=== PATIENT | female | born 1955 | race Caucasian/White ===

== ENCOUNTER 2022-03-13 14:54 | Emergency (ER) | payer MEDICARE ==
[~2022-03-13] VITALS: Ht 160 cm; Wt 65.7 kg
[~2022-03-13 14:54] MED LIST: CIPROFLOXACN500 MG PO; DICYCLOMINE10 MG PO; LEVO-T25 MCG PO; LIPITOR20 M1 PO; ZOFRAN4 MG/TAB PO
[2022-03-13 15:15] VITALS: BP 123/60
[2022-03-13 15:31] VITALS: BP 109/68
[2022-03-13 17:13] VITALS: BP 135/87
[2022-03-13 17:30] VITALS: BP 121/74
[2022-03-13 17:59] VITALS: BP 121/74
== END 2022-03-13 18:00 | disposition home or self-care (01) ==
LOC: ED 14:54
DX: S90.31XA Contusion of right foot, initial encounter (principal); W20.8XXA Other cause of strike by thrown, projected or falling object, initial encounter; Y92.009 Unspecified place in unspecified non-institutional (private) residence as the place of occurrence of the external cause

== ENCOUNTER 2022-04-13 15:05 | Emergency (ER) | payer MEDICARE ==
[~2022-04-13] VITALS: Ht 160 cm; Wt 65.0 kg
[2022-04-13] MEDS ORDERED: GABAPENTIN100 MG PO (16:33)
[2022-04-13 16:56] VITALS: BP 132/114
[2022-04-13 17:01] VITALS: BP 145/79
[2022-04-13 17:59] VITALS: BP 145/79
== END 2022-04-13 18:04 | disposition home or self-care (01) ==
LOC: ED 15:05
PROC: 0HQFXZZ Repair Right Hand Skin, External Approach (ICD-10-PCS; principal; 2022-04-13)
DX: S61.411A Laceration without foreign body of right hand, initial encounter (principal); W26.0XXA Contact with knife, initial encounter; Y93.89 Activity, other specified; Y92.009 Unspecified place in unspecified non-institutional (private) residence as the place of occurrence of the external cause